=== PATIENT | male | born 1940 | race Caucasian/White ===

== ENCOUNTER 2020-01-18 13:58 | Outpatient (CLI) | payer MEDICARE, OTHER, SELFPAY ==
--- NOTE | 2020-01-22 15:10 | ONC FU_ITS ---
Dr. Walton Patient Follow-Up Note Patient: Brian Noel Unit #: [id number]: 1940 Dicatated By: Miki Walton M.D.Date of Visit:January 18, 2020 Onc Med Follow-up/Prog Note Chief Complaint: Squamous cell carcinoma of the nasopharynx. 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 He had presented with a palpable mass on the right side of the neck. FNA biopsy of the mass on 05/19/2018 showed metastatic squamous cell carcinoma, p16 positive. CT of the neck on 05/19/2018 showed rounded soft tissue density mass within the right neck, reportedly measuring 2.[address] of the chest and abdomen showed stable appearing mediastinal and right hilar lymphadenopathy. The right adrenal gland was not definitely visualized. PET/CT on 06/02/2018 showed an intense focus of increased metabolic activity in the right posterior nasal pharynx soft tissue, maximum SUV 7.56. The area of involvement appeared to roughly measure 2.8 x 1.8 cm. The right cervical mass measured 2.8 x 2.8 cm with SUV 12.31. There was increased metabolic activity present in mediastinal lymph nodes, felt to be nonspecific. He underwent bronchoscopy/EBUS with FNA biopsy of station 4L and station 7 lymph nodes. Pathology was benign. On 06/26/2018 he underwent direct microlaryngoscopy with biopsy of nasopharynx and bilateral tonsillectomy. Pathology on the tonsillectomy specimens was benign. Nasopharynx biopsy at the right torus tubarius showed p16 positive squamous cell carcinoma. Overall, the findings were consistent with T1, N1 primary squamous cell carcinoma of the nasopharynx, and he was recommended undergo treatment with chemoradiation. His medical history is otherwise significant for deep vein thrombosis of the left leg in January 2017. CT pulmonary angiogram at that time showed no evidence of pulmonary embolism. However, he was noted to have a 5.2 x 3.9 x 4.7 cm right adrenal mass. 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 He then underwent right adrenalectomy in [facility] in May 2017. The lesion apparently was malignant, but completely resected. I had seen him initially on 08/20/2018. He was recommended to proceed with chemoradiation utilizing the standard high-dose cisplatin regimen. However, he was very reluctant to undergo treatment due to concerns about the associated side effects, as he had not been eating well and was already losing weight. He was also very reluctant to have his teeth removed for the radiation. As such, I had initially just focused on his symptomatic management, and he did show significant improvement. However, during subsequent follow-up he continued to decline treatment with either chemotherapy or radiation. His other medical illnesses include hyperlipidemia, coronary artery disease, COPD, and degenerative arthritis. He underwent coronary angioplasty/stent placement in association with a myocardial infarction in 2001. He also has a prior history of pulmonary embolism. He has a history of smoking for 50 years, previously up to 1 1/2 pack of cigarettes daily. He currently smokes 1 pack per day or less. He is seen for a followup visit. He complains that he is weak all the time that he cannot do anything. Activity is limited. His ECOG score is 2. Appetite is poor. His weight is down 10 pounds. He has not had fever or night sweats. He says he is cold natured. He sometimes has sinus drainage. He has quite a bit of cough. It is productive of white phlegm. He has shortness of breath. His breathing is about the same. He does not complain of chest pain. He has no GI/ complaints other than his urination is slow. He has back pain, which is chronic. He does not complain of headache. He does have dizziness and orthostatic lightheadedness. He has no focal neurologic symptoms. Medications: Eliquis 1 Tablet (of 5 mg) Oral daily, Nitrofurantoin Monohyd Macro 1 (100 mg) Capsule Oral b.i.d. for 7 days Allergies: Aloe Vera Review of Systems: Constitutional - He complains that he is weak all the time. He has limited activity. His appetite is poor. His weight is down 10 lbs. No fever or night sweats. ECOG score is 2, ENMT - He has sinus congestion/drainage. No mouth sores. No sore throat or difficulty swallowing, Hematologic/Lymphatic - He bruises easily, Respiratory - He has shortness of breath with activity. He has cough productive of white phlegm. No pleuritic pain or hemoptysis, Cardiovascular - No angina pain. No palpitations, Gastrointestinal - No nausea or vomiting. No heartburn or acid reflux. No diarrhea or constipation. No blood in the stool or black stools, Genitourinary (M) - His urination is slow. No dysuria or hematuria. No urgency or incontinence, Musculoskeletal - He has back pain, Integumentary - No skin complications, Neurologic - No headache. He has dizziness and he has orthostatic light-headness. No numbness/paresthesias or other focal neurologic symptoms, Psychiatric - He has depression because he is not able to do anything. He has difficulty sleeping. Vital Signs: Height 70 inches and weight 168 pounds. Blood pressure 92/58, pulse 81, respirations 18, temp 98.9 degrees, and oxygen saturation 94%. Physical Examination: Constitutional - He appears somewhat weak generally, Eyes - Sclerae nonicteric. Conjunctivae clear, ENMT - There are no lesions noted in the oral cavity, Neck - He has developed a confluent mass on the right side of the neck, now measuring in the range of 8 cm in maximum diameter, Hematologic/Lymphatic - There is no adenopathy on the left side of the neck and there is no axillary adenopathy noted, Respiratory - Lungs are clear with diminished air movement bilaterally, Cardiovascular - Heart rhythm is regular. There is no murmur, gallop, or rub noted, Abdomen - Soft. Liver and spleen are not enlarged. There is no abdominal mass or ascites noted and there is no inguinal adenopathy, Extremities - No edema, Neurologic - No focal neurologic deficits noted. Impression: 1. 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 2. He had associated anorexia with weight loss of 50 pounds. 3. 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 4. He has a history of left lower extremity deep vein thromboses in January 2017 and a prior history of pulmonary embolism. His other medical illnesses include: 5. Hyperlipidemia. 6. Coronary artery disease with previous myocardial infarction and angioplasty/stent placement. 7. COPD. 8. Degenerative arthritis. He was recommended to undergo chemoradiation utilizing a standard high-dose cisplatin chemotherapy regimen. He initially declined treatment due to concerns about toxicity and the need for dental extractions. His tumor was found to be negative for PD-L1 expression. He initially was feeling better with symptomatic measures. During subsequent follow-up there has been progression of the local disease in the right side of his neck, but it has been very gradual. His blood pressure has been low, and he has continued to complain of weakness and orthostatic lightheadedness. Plan: He is going to continue symptomatic/supportive care measures for the head/neck cancer. Due to his weakness and lightheadedness in association with persistent hypotension, I will schedule him for a cosyntropin stimulation test. He will have further evaluation as indicated. Signed By: Miki Walton M.D. <<Signature on File>>
== END 2020-01-18 13:59 | disposition home or self-care (01) ==
LOC: ONCMED 13:58
PROVIDERS: PCP Nurse Practitioner Family; Visit Provider Internal Medicine Medical Oncology
DX: C11.2 Malignant neoplasm of lateral wall of nasopharynx (principal); Z85.89 Personal history of malignant neoplasm of other organs and systems; I95.9 Hypotension, unspecified; E89.6 Postprocedural adrenocortical (-medullary) hypofunction; E78.5 Hyperlipidemia, unspecified; I25.10 Atherosclerotic heart disease of native coronary artery without angina pectoris; I25.2 Old myocardial infarction; J44.9 Chronic obstructive pulmonary disease, unspecified; M19.90 Unspecified osteoarthritis, unspecified site; Z95.1 Presence of aortocoronary bypass graft; Z95.5 Presence of coronary angioplasty implant and graft
CPT/HCPCS: 99214

== ENCOUNTER 2020-01-28 09:39 | Outpatient (CLI) | payer MEDICARE, OTHER, SELFPAY ==
[2020-01-28 10:13] VITALS: BP 116/7; PULSE 62; RESP 18; TEMP 36.7; O2SAT 98; BMI 24.0
[2020-01-28] MEDS: cosyntropin 0.25 mg SDV IVP (10:40)
[2020-01-28 10:59] LABS: Basophils % 0.4 %; Eosinophils # 0.2 10^3/uL (0.0-0.8); Eosinophils % 3.2 %; Hematocrit 45.8 % (42.0-52.0); Hemoglobin 15.1 g/dL (11.7-16.6); Lymphocytes # 1.5 10^3/uL (0.8-4.8); Lymphocytes % 27.4 %; Mean Corpuscular Hemoglobin 31.7 pg (28.0-34.0); Mean Corpuscular Volume 96.2 fL (80-94); Monocytes # 0.5 10^3/uL (0.2-0.9); Monocytes % 8.8 %; Neutrophils # 3.2 10^3/uL (1.8-7.7); Neutrophils % 59.8 %; Nucleated Red Blood Cells % 0 %; Platelet Count 213 10^3/cmm (130-400); Red Blood Count 4.76 10^6/uL (4.1-5.3); Red Cell Distribution Width 13.1 % (12.1-15.1); White Blood Count 5.4 10^3/uL (4.0-10.0)
[2020-01-28 11:33] LABS: Alanine Aminotransferase 13 U/L (0-41); Albumin Level 4.3 g/dL (3.5-5.2); Alkaline Phosphatase 67 IU/L (40-130); Anion Gap 16.6 (5-19); Aspartate Amino Transferase 23 U/L (0-40); Blood Urea Nitrogen 16 mg/dL (8-23); Calcium 9.5 mg/dL (8.5-10.5); Carbon Dioxide 24 mmol/L (22-29); Chloride 102 mmol/L (98-107); Free T4 Free Thyroxine 1.37 ng/dL (0.82-1.77); Glucose 103 mg/dL (65-115); Osmolality Calculated 283 mOsm/kg (285-295); Potassium 4.6 mmol/L (3.5-5.1); Sodium 138 mmol/L (136-145); Thyroid Stimulating Hormone 3.69 uIU/mL (0.27-4.20); Total Bilirubin 0.4 mg/dL (0.15-1.2); Total Protein 7.3 g/dL (6.6-8.7)
[2020-01-28 11:59] LABS: Cosyntropin Baseline 13.34 mcg/dL
[2020-01-28 12:39] LABS: Cosyntropin 30 Minute 21.67 mcg/dL
[2020-01-28 13:45] LABS: Cosyntropin 1 Hour 26.65 mcg/dL
== END 2020-01-28 09:40 | disposition home or self-care (01) ==
LOC: GILAB 09:43
PROVIDERS: PCP Nurse Practitioner Family; Visit Provider Internal Medicine Medical Oncology
DX: C11.2 Malignant neoplasm of lateral wall of nasopharynx (principal)
CPT/HCPCS: 36415; 80053; 82533; 84439; 84443; 85025; 96375; J0834

== ENCOUNTER 2021-05-25 08:06 | Outpatient (CLI) | payer MEDICARE, OTHER, SELFPAY ==
--- NOTE | 2021-05-25 12:52 | ONC FU_ITS ---
Dr. Walton Patient Follow-Up Note Patient: Brian Noel Unit #: [id number]: 1940 Dicatated By: Miki Walton M.D.Date of Visit:May 25, 2021 Onc Med Follow-up/Prog Note Chief Complaint: Squamous cell carcinoma of the nasopharynx. 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 He had presented with a palpable mass on the right side of the neck. FNA biopsy of the mass on 05/19/2018 showed metastatic squamous cell carcinoma, p16 positive. CT of the neck on 05/19/2018 showed rounded soft tissue density mass within the right neck, reportedly measuring 2.[address] of the chest and abdomen showed stable appearing mediastinal and right hilar lymphadenopathy. The right adrenal gland was not definitely visualized. PET/CT on 06/02/2018 showed an intense focus of increased metabolic activity in the right posterior nasal pharynx soft tissue, maximum SUV 7.56. The area of involvement appeared to roughly measure 2.8 x 1.8 cm. The right cervical mass measured 2.8 x 2.8 cm with SUV 12.31. There was increased metabolic activity present in mediastinal lymph nodes, felt to be nonspecific. He underwent bronchoscopy/EBUS with FNA biopsy of station 4L and station 7 lymph nodes. Pathology was benign. On 06/26/2018 he underwent direct microlaryngoscopy with biopsy of nasopharynx and bilateral tonsillectomy. Pathology on the tonsillectomy specimens was benign. Nasopharynx biopsy at the right torus tubarius showed p16 positive squamous cell carcinoma. Overall, the findings were consistent with T1, N1 primary squamous cell carcinoma of the nasopharynx, and he was recommended undergo treatment with chemoradiation. I had seen him initially on 08/20/2018. He was recommended to proceed with chemoradiation utilizing the standard high-dose cisplatin regimen. However, he was very reluctant to undergo treatment due to concerns about the associated side effects, as he had not been eating well and was already losing weight. He was also very reluctant to have his teeth removed for the radiation. As such, I had initially just focused on his symptomatic management, and he did show significant improvement. However, during subsequent follow-up he continued to decline treatment with either chemotherapy or radiation. His medical history is otherwise significant for deep vein thrombosis of the left leg in January 2017. CT pulmonary angiogram at that time showed no evidence of pulmonary embolism. However, he was noted to have a 5.2 x 3.9 x 4.7 cm right adrenal mass. 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 He then underwent right adrenalectomy in [facility] in May 2017. The lesion apparently was malignant, but completely resected. His other medical illnesses include hyperlipidemia, coronary artery disease, COPD, and degenerative arthritis. He underwent coronary angioplasty/stent placement in association with a myocardial infarction in 2001. He also has a prior history of pulmonary embolism. He has a history of smoking for 50 years, previously up to 1 1/2 pack of cigarettes daily. He cut down to 1 pack per day or less. INTERIM HISTORY: As of his follow-up visit in December 2019 he continues to report episodes of weakness and lightheadedness. He otherwise appeared stable clinically. A subsequent cosyntropin stimulation test showed adequate adrenal response. He continued symptomatic/supportive care. He is seen today at his request because of a severe skin eruption. It had started 2 or 3 months ago. His treatment has included a course of ivermectin therapy and topical triamcinolone cream, but without benefit. He continues to have a terrible, itchy skin rash which is predominantly on his back and arms. During this time is also noted significant worsening of generalized joint pain. He complains that he has no energy, and he has very little activity. ECOG score is 3. His appetite is poor and his oral intake remains limited. His weight is down another 20 pounds since his last visit. He does not have fever or night sweats. He has had sore throat, but no difficulty swallowing. He has just occasional cough. He is sometimes short of breath. He has had occasional episodes of chest pain. He does not complain of nausea. His bowels do not move very well, but that he attributes to not eating very much. Bladder function is slow. He does not complain of headache. He still sometimes has dizziness/lightheadedness. He has no numbness/paresthesia or other focal neurologic symptoms. Medications: Eliquis 1 Tablet (of 5 mg) Oral daily, Ivermectin Tablet Oral, Tamsulosin HCl 1 Tablet (of 0.4 mg) Capsule Oral daily, Triamcinolone Acetonide 1 APL (of 0.1 %) Cream Topical b.i.d. Allergies: Aloe Vera Vital Signs: Performed on May 25, 2021 08:54 Height - 70.00 in Weight - 148.8 lbs (LOW) BSA - 1.84 sq.m BMI - 21.35 Temperature - 97.8 F (LOW) Pulse - 106 /min (HIGH) Respiration - 18 /min BP - 110/70 mm(hg) O2 Sat - 99 % Pain - 5 Fatigue - 8 Physical Examination: Constitutional - He appears somewhat weak generally, Eyes - Sclerae nonicteric. Conjunctivae clear, ENMT - There are no lesions noted in the oral cavity, Hematologic/Lymphatic - No adenopathy in the neck or axillae, Respiratory - Lungs are clear with diminished air movement bilaterally, Cardiovascular - Heart rhythm is regular. There is no murmur, gallop, or rub noted, Abdomen - Soft. Liver and spleen are not enlarged. There is no abdominal mass or ascites noted and there is no inguinal adenopathy, Extremities - No edema, Integumentary - There is diffuse erythematous skin eruption on the back and forearms. There it is more limited involvement in the abdomen and in the right knee area, Neurologic - No focal neurologic deficits noted. Problem List: 1. 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 2. 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 3. He has a history of left lower extremity deep vein thromboses in January 2017 and a prior history of pulmonary embolism. 4. Hyperlipidemia. 5. Coronary artery disease with previous myocardial infarction and angioplasty/stent placement. 6. COPD. 7. Degenerative arthritis. Problems Addressed with this Encounter and Plan: 1. Patient with known head/neck cancer presents with extensive erythematous skin eruption, predominantly on the back and forearms. He has had empiric treatment with ivermectin and with topical triamcinolone cream, but without apparent benefit. The appearance is most suggestive of a hypersensitivity reaction, and I did recommend that, at least temporarily, he stopped both the apixaban and the tamsulosin. He will now start prednisone 20 mg 3 times daily for 3 days, followed by 20 mg twice daily for 6 days, then continuing 10 mg twice daily. I will tentatively plan a follow-up visit for 1 month. If he is not having significant improvement by next week, I will arrange for him to see a brick layer. 2. 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 He was recommended to undergo chemoradiation utilizing a standard high-dose cisplatin chemotherapy regimen. He declined treatment due to concerns about toxicity and the need for dental extractions. His tumor was found to be negative for PD-L1 expression. As such, he has thus far just continued symptomatic/supportive care. He has continued to show gradual weight loss and gradual decline in performance status. Signed By: Miki Walton M.D. <<Signature on File>>
== END 2021-05-25 08:07 | disposition home or self-care (01) ==
LOC: ONCMED 08:13
PROVIDERS: PCP Nurse Practitioner Family; Visit Provider Internal Medicine Medical Oncology
DX: C11.2 Malignant neoplasm of lateral wall of nasopharynx (principal); E78.5 Hyperlipidemia, unspecified; I25.10 Atherosclerotic heart disease of native coronary artery without angina pectoris; Z79.52 Long term (current) use of systemic steroids; I25.2 Old myocardial infarction; M19.90 Unspecified osteoarthritis, unspecified site; Z79.01 Long term (current) use of anticoagulants; Z86.718 Personal history of other venous thrombosis and embolism; Z79.899 Other long term (current) drug therapy; Z95.5 Presence of coronary angioplasty implant and graft
CPT/HCPCS: 99214

== ENCOUNTER 2021-06-28 15:42 | Outpatient (CLI) | payer MEDICARE, OTHER, SELFPAY ==
--- NOTE | 2021-07-01 12:07 | ONC FU_ITS ---
Dr. Walton Patient Follow-Up Note Patient: Brian Noel Unit #: [id number]: 1940 Dicatated By: Miki Walton M.D.Date of Visit:Jun 28, 2021 Onc Med Follow-up/Prog Note Chief Complaint: Squamous cell carcinoma of the nasopharynx. 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 He had presented with a palpable mass on the right side of the neck. FNA biopsy of the mass on 05/19/2018 showed metastatic squamous cell carcinoma, p16 positive. CT of the neck on 05/19/2018 showed rounded soft tissue density mass within the right neck, reportedly measuring 2.[address] of the chest and abdomen showed stable appearing mediastinal and right hilar lymphadenopathy. The right adrenal gland was not definitely visualized. PET/CT on 06/02/2018 showed an intense focus of increased metabolic activity in the right posterior nasal pharynx soft tissue, maximum SUV 7.56. The area of involvement appeared to roughly measure 2.8 x 1.8 cm. The right cervical mass measured 2.8 x 2.8 cm with SUV 12.31. There was increased metabolic activity present in mediastinal lymph nodes, felt to be nonspecific. He underwent bronchoscopy/EBUS with FNA biopsy of station 4L and station 7 lymph nodes. Pathology was benign. On 06/26/2018 he underwent direct microlaryngoscopy with biopsy of nasopharynx and bilateral tonsillectomy. Pathology on the tonsillectomy specimens was benign. Nasopharynx biopsy at the right torus tubarius showed p16 positive squamous cell carcinoma. Overall, the findings were consistent with T1, N1 primary squamous cell carcinoma of the nasopharynx, and he was recommended undergo treatment with chemoradiation. I had seen him initially on 08/20/2018. He was recommended to proceed with chemoradiation utilizing the standard high-dose cisplatin regimen. However, he was very reluctant to undergo treatment due to concerns about the associated side effects, as he had not been eating well and was already losing weight. He was also very reluctant to have his teeth removed for the radiation. As such, I had initially just focused on his symptomatic management, and he did show significant improvement. However, during subsequent follow-up he continued to decline treatment with either chemotherapy or radiation. As of his follow-up visit in December 2019 he continues to report episodes of weakness and lightheadedness. He otherwise appeared stable clinically. A subsequent cosyntropin stimulation test showed adequate adrenal response. He continued symptomatic/supportive care. His medical history is otherwise significant for deep vein thrombosis of the left leg in January 2017. CT pulmonary angiogram at that time showed no evidence of pulmonary embolism. However, he was noted to have a 5.2 x 3.9 x 4.7 cm right adrenal mass. 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 He then underwent right adrenalectomy in [facility] in May 2017. The lesion apparently was malignant, but completely resected. His other medical illnesses include hyperlipidemia, coronary artery disease, COPD, and degenerative arthritis. He underwent coronary angioplasty/stent placement in association with a myocardial infarction in 2001. He also has a prior history of pulmonary embolism. He has a history of smoking for 50 years, previously up to 1 1/2 pack of cigarettes daily. He cut down to 1 pack per day or less. I had seen him for a followup visit on 05/25/2021. He had developed a severe skin eruption 2 or 3 months earlier. His treatment has included a course of ivermectin therapy and topical triamcinolone cream, but without benefit. The appearance was consistent with a hypersensitivity reaction. He was treated with prednisone, initially at 20 mg tid. He was advised to stop apixiban and tamsulosin. He is seen for a followup visit. He is feeling much better, currently taking 20 mg of prednisone twice daily. His skin eruption has almost completely resolved. He also is feeling much better generally with improved energy and mobility. He has some difficulty swallowing. He tends to choke up at night. He has shortness of breath with activity. He was having constipation, but that has improved now. He has had difficulty voiding after stopping Flomax. Medications: Eliquis 1 Tablet (of 5 mg) Oral daily, predniSONE 2 Tablet (of 10 mg) Oral daily for 2 weeks, Tamsulosin HCl 1 Tablet (of 0.4 mg) Capsule Oral daily, Triamcinolone Acetonide 1 APL (of 0.1 %) Cream Topical b.i.d., Umeclidinium-Vilanterol 1 Puff(s) (of 62.5-25 mcg/inh) Aerosol Powder, Breath Activated Inhalation daily Allergies: Aloe Vera Vital Signs: Performed on Jun 28, 2021 16:00 Height - 70.00 in Weight - 159.8 lbs (HIGH) BSA - 1.90 sq.m BMI - 22.93 Temperature - 98.4 F Pulse - 100 /min Respiration - 18 /min BP - 112/77 mm(hg) O2 Sat - 99 % Pain - 0 Fatigue - 7 Physical Examination: Constitutional - He looks better generally, Eyes - Sclerae nonicteric. Conjunctivae clear, ENMT - There are no lesions noted in the oral cavity, Neck - There are perstent masses on the right side of the neck measuring 3cm and 1 cm, Hematologic/Lymphatic - There is no other adenopathy in the neck or axillae, Respiratory - Lungs are clear with diminished air movement bilaterally, Cardiovascular - Heart rhythm is regular. There is no murmur, gallop, or rub noted, Abdomen - Soft. Liver and spleen are not enlarged. There is no abdominal mass or ascites noted and there is no inguinal adenopathy, Extremities - Mild edema, Integumentary - The skin eruption is almost completely resolved, Neurologic - No focal neurologic deficits noted. Problem List: 1. 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 2. 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 3. He has a history of left lower extremity deep vein thromboses in January 2017 and a prior history of pulmonary embolism. 4. Hyperlipidemia. 5. Coronary artery disease with previous myocardial infarction and angioplasty/stent placement. 6. COPD. 7. Degenerative arthritis. Problems Addressed with this Encounter and Plan: 1. Patient with known head/neck cancer presents with extensive erythematous skin eruption, predominantly on the back and forearms. He had empiric treatment with ivermectin and with topical triamcinolone cream, but without apparent benefit. The appearance was most suggestive of a hypersensitivity reaction. He was recommended to stop apixaban and tamsulosin and he began prednisone at 20 mg tid, subsequently reduced to 20 mg bid. He has had a very good response with almost complete resolution of the skin eruption. He also has been feeling much better generally. He will continue prednisone at 10 mg bid for 2 weeks, then decrease to 10 mg daily. He will try restarting the tamsulosin and the apixaban. I will see him again in one month. 2. 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 He was recommended to undergo chemoradiation utilizing a standard high-dose cisplatin chemotherapy regimen. He declined treatment due to concerns about toxicity and the need for dental extractions. His tumor was found to be negative for PD-L1 expression. As such, he has thus far just continued symptomatic/supportive care. Signed By: Miki Walton M.D. <<Signature on File>>
== END 2021-06-28 15:43 | disposition home or self-care (01) ==
LOC: ONCMED 15:44
PROVIDERS: PCP Nurse Practitioner Family; Visit Provider Internal Medicine Medical Oncology
DX: C11.9 Malignant neoplasm of nasopharynx, unspecified (principal); E78.2 Mixed hyperlipidemia; I25.10 Atherosclerotic heart disease of native coronary artery without angina pectoris; I25.2 Old myocardial infarction; J44.9 Chronic obstructive pulmonary disease, unspecified; F17.210 Nicotine dependence, cigarettes, uncomplicated; Z86.711 Personal history of pulmonary embolism; Z86.718 Personal history of other venous thrombosis and embolism; Z79.01 Long term (current) use of anticoagulants
CPT/HCPCS: G0463

== ENCOUNTER 2021-07-31 07:39 | Outpatient (CLI) | payer MEDICARE, OTHER, SELFPAY ==
[2021-07-31 08:38] LABS: Basophils % 0.3 %; Eosinophils # 0.1 10^3/uL (0.0-0.8); Eosinophils % 1.6 %; Hematocrit 43.1 % (42.0-52.0); Hemoglobin 13.6 g/dL (11.7-16.6); Lymphocytes # 3.1 10^3/uL (0.8-4.8); Lymphocytes % 35.3 %; Mean Corpuscular HGB Conc 31.6 g/dL (30.0-36.0); Mean Corpuscular Hemoglobin 29.8 pg (28.0-34.0); Mean Corpuscular Volume 94.5 fl (80-94); Mean Platelet Volume 9.7 fL (7.4-10.4); Monocytes # 1.2 10^3/uL (0.2-0.9); Monocytes % 13.5 %; Neutrophils # 4.21 10^3/uL (1.8-7.7); Neutrophils % 48.4 %; Nucleated Red Blood Cells % 0 %; Platelet Count 344 10^3/cmm (130-400); Red Blood Count 4.56 10^6/uL (4.1-5.3); Red Cell Distribution Width 18.4 % (12.1-15.1); White Blood Count 8.7 10^3/uL (4.0-10.0)
[2021-07-31 09:24] LABS: Alanine Aminotransferase 10 U/L (0-41); Albumin Level 3.7 g/dL (3.5-5.2); Alkaline Phosphatase 61 IU/L (40-130); Anion Gap 15.2 (5-19); Aspartate Amino Transferase 15 U/L (0-40); Blood Urea Nitrogen 20 mg/dL (8-23); Calcium 8.7 mg/dL (8.5-10.5); Carbon Dioxide 23 mmol/L (22-29); Chloride 106 mmol/L (98-107); Globulin 2.6 g/dL (1.3-4.6); Glucose 92 mg/dL (65-115); Osmolality Calculated 292 mOsm/kg (285-295); Potassium 4.2 mmol/L (3.5-5.1); Sodium 140 mmol/L (136-145); Thyroid Stimulating Hormone 5.76 uIU/mL (0.27-4.20); Total Bilirubin 0.2 mg/dL (0.15-1.2); Total Protein 6.3 g/dL (6.6-8.7)
--- NOTE | 2021-08-04 09:35 | ONC FU_ITS ---
Dr. Walton Patient Follow-Up Note Patient: Brian Noel Unit #: [id number]: [id number] Dicatated By: Miki Walton M.D.Date of Visit:Jul 31, 2021 Onc Med Follow-up/Prog Note Chief Complaint: Squamous cell carcinoma of the nasopharynx. 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 He had presented with a palpable mass on the right side of the neck. FNA biopsy of the mass on 05/19/2018 showed metastatic squamous cell carcinoma, p16 positive. CT of the neck on 05/19/2018 showed rounded soft tissue density mass within the right neck, reportedly measuring 2.[address] of the chest and abdomen showed stable appearing mediastinal and right hilar lymphadenopathy. The right adrenal gland was not definitely visualized. PET/CT on 06/02/2018 showed an intense focus of increased metabolic activity in the right posterior nasal pharynx soft tissue, maximum SUV 7.56. The area of involvement appeared to roughly measure 2.8 x 1.8 cm. The right cervical mass measured 2.8 x 2.8 cm with SUV 12.31. There was increased metabolic activity present in mediastinal lymph nodes, felt to be nonspecific. He underwent bronchoscopy/EBUS with FNA biopsy of station 4L and station 7 lymph nodes. Pathology was benign. On 06/26/2018 he underwent direct microlaryngoscopy with biopsy of nasopharynx and bilateral tonsillectomy. Pathology on the tonsillectomy specimens was benign. Nasopharynx biopsy at the right torus tubarius showed p16 positive squamous cell carcinoma. Overall, the findings were consistent with T1, N1 primary squamous cell carcinoma of the nasopharynx, and he was recommended undergo treatment with chemoradiation. I had seen him initially on 08/20/2018. He was recommended to proceed with chemoradiation utilizing the standard high-dose cisplatin regimen. However, he was very reluctant to undergo treatment due to concerns about the associated side effects, as he had not been eating well and was already losing weight. He was also very reluctant to have his teeth removed for the radiation. As such, I had initially just focused on his symptomatic management, and he did show significant improvement. However, during subsequent follow-up he continued to decline treatment with either chemotherapy or radiation. As of his follow-up visit in December 2019 he continues to report episodes of weakness and lightheadedness. He otherwise appeared stable clinically. A subsequent cosyntropin stimulation test showed adequate adrenal response. He continued symptomatic/supportive care. His medical history is otherwise significant for deep vein thrombosis of the left leg in January 2017. CT pulmonary angiogram at that time showed no evidence of pulmonary embolism. However, he was noted to have a 5.2 x 3.9 x 4.7 cm right adrenal mass. 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 He then underwent right adrenalectomy in [facility] in May 2017. The lesion apparently was malignant, but completely resected. His other medical illnesses include hyperlipidemia, coronary artery disease, COPD, and degenerative arthritis. He underwent coronary angioplasty/stent placement in association with a myocardial infarction in 2001. He also has a prior history of pulmonary embolism. He has a history of smoking for 50 years, previously up to 1 1/2 pack of cigarettes daily. He cut down to 1 pack per day or less. I had seen him for a followup visit on 05/25/2021. He had developed a severe skin eruption 2 or 3 months earlier. His treatment has included a course of ivermectin therapy and topical triamcinolone cream, but without benefit. The appearance was consistent with a hypersensitivity reaction. He was treated with prednisone, initially at 20 mg tid. He was advised to stop apixiban and tamsulosin. At his follow-up visit on 06/28/2021 he had improved significantly. He was then able to restart both the apixaban and the tamsulosin. He continued prednisone at 10 mg twice daily for an additional 2 weeks at which point it was further reduced to 10 mg daily. He is seen for a follow-up visit. He has been feeling pretty good generally since he has been on the steroid, as his joint pain and mobility have improved significantly. He says his energy is still not too good and he still has fairly limited activity. ECOG score is 2. Appetite has been much better on the steroid. He has not had fever or night sweats. He has having difficulty with vision due to cataracts and to macular degeneration. He has not had sore mouth or throat. He does have some shortness of breath with activity and he has cough productive of white sputum. He does not complain of chest pain. He was having diarrhea, but that seems to be resolving now. He has no other GI or complaints. He does not complain of headache. He sometimes has dizziness. He has no focal neurologic symptoms. He is still having some swelling in his legs. Medications: Eliquis 1 Tablet (of 5 mg) Oral daily, predniSONE 2 Tablet (of 10 mg) Oral daily for 2 weeks, Tamsulosin HCl 1 Tablet (of 0.4 mg) Capsule Oral daily, Triamcinolone Acetonide 1 APL (of 0.1 %) Cream Topical b.i.d., Umeclidinium-Vilanterol 1 Puff(s) (of 62.5-25 mcg/inh) Aerosol Powder, Breath Activated Inhalation daily Allergies: Aloe Vera Vital Signs: Performed on Jul 31, 2021 14:16 Height - 70.00 in Weight - 161.6 lbs (HIGH) BSA - 1.91 sq.m BMI - 23.19 Temperature - 98.7 F Pulse - 101 /min (HIGH) Respiration - 18 /min BP - 99/66 mm(hg) O2 Sat - 95 % (LOW) Pain - 0 Fatigue - 5 Physical Examination: Constitutional - He looks pretty good generally, Eyes - Sclerae nonicteric. Conjunctivae clear, ENMT - No lesions noted in the oral cavity, Neck - There is residual mass on the right side of the neck measuring the range of 5 cm, Hematologic/Lymphatic - There is no other adenopathy in the neck or axillae, Respiratory - Lungs are clear with diminished air movement bilaterally, Cardiovascular - Heart rhythm is regular. There is no murmur, gallop, or rub noted, Abdomen - Soft. Liver and spleen are not enlarged. There is no abdominal mass or ascites noted and there is no inguinal adenopathy, Extremities - Mild edema, Integumentary - No skin eruption, Neurologic - No focal neurologic deficits noted. Lab/Imaging: Test performed on Jul 31, 2021 08:25 Sodium 140 mmol/L TSH 5.76 uIU/mL Potassium 4.2 mmol/L Chloride 106 mmol/L CO2 23 mmol/L Anion Gap 15.2 BUN 20 mg/dL Creatinine 0.9 mg/dL Cr Clearance (Est) 65.61 mL/min Glucose 92 mg/dL Osmolality - Calculated 292 mOsm/kg Calcium 8.7 mg/dL Protein, Total 6.3 g/dL Albumin 3.7 g/dL Globulin 2.6 g/dL Bilirubin, Total 0.2 mg/dL ALT (SGPT) 10 U/L AST (SGOT) 15 U/L Alkaline Phosphatase 61 IU/L WBC 8.7 10 3/uL RBC 4.56 10 6/uL HGB 13.6 g/dL HCT 43.1 % MCV 94.5 fl MCH 29.8 pg MCHC 31.6 g/dL RDW 18.4 % Platelet Count 344 10 3/cmm MPV 9.7 fL Neutrophils 4.21 10 3/uL Lymphocytes 3.1 10 3/uL Monocytes 1.2 10 3/uL Eosinophils 0.1 10 3/uL Basophils 0.0 10 3/uL Neutrophil % 48.4 % Lymphocyte % 35.3 % Monocyte % 13.5 % Eosinophil % 1.6 % Basophils % 0.3 % NRBC % 0 % Problem List: 1. 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 2. 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 3. He has a history of left lower extremity deep vein thromboses in January 2017 and a prior history of pulmonary embolism. 4. Hyperlipidemia. 5. Coronary artery disease with previous myocardial infarction and angioplasty/stent placement. 6. COPD. 7. Degenerative arthritis. 8. Benign prostatic hypertrophy. Problems Addressed with this Encounter and Plan: 1. Patient with known head/neck cancer presents with extensive erythematous skin eruption, predominantly on the back and forearms. He had empiric treatment with ivermectin and with topical triamcinolone cream, but without apparent benefit. The appearance was most suggestive of a hypersensitivity reaction. He was recommended to stop apixaban and tamsulosin and he began prednisone at 20 mg tid, subsequently reduced to 20 mg bid. He had a very good response with almost complete resolution of the skin eruption. Thus far there has been no recurrence of the eruption with the prednisone reduced to 10 mg daily. He has been feeling much better generally since he started the steroid. As such, he will continue prednisone at 10 mg daily. He will be scheduled for a follow-up visit in 3 months. 2. 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 He was recommended to undergo chemoradiation utilizing a standard high-dose cisplatin chemotherapy regimen. He declined treatment due to concerns about toxicity and the need for dental extractions. His tumor was found to be negative for PD-L1 expression. He has been followed on observation/symptomatic management. Thus far there has been no obvious disease progression despite the fact that he has had no specific treatment. Signed By: Miki Walton M.D. <<Signature on File>>
== END 2021-07-31 07:40 | disposition home or self-care (01) ==
LOC: ONCMED 07:41
PROVIDERS: PCP Nurse Practitioner Family; Visit Provider Internal Medicine Medical Oncology
DX: Z08 Encounter for follow-up examination after completed treatment for malignant neoplasm (principal); Z85.89 Personal history of malignant neoplasm of other organs and systems; E78.5 Hyperlipidemia, unspecified; I25.10 Atherosclerotic heart disease of native coronary artery without angina pectoris; Z95.5 Presence of coronary angioplasty implant and graft; J44.9 Chronic obstructive pulmonary disease, unspecified; M19.90 Unspecified osteoarthritis, unspecified site; N40.0 Benign prostatic hyperplasia without lower urinary tract symptoms; Z86.718 Personal history of other venous thrombosis and embolism; Z86.711 Personal history of pulmonary embolism
CPT/HCPCS: 36415; 80053; 84443; 85025; 99214

== ENCOUNTER 2021-10-30 08:17 | Outpatient (CLI) | payer MEDICARE, OTHER, SELFPAY ==
[2021-10-30 08:46] LABS: Basophils % 0.4 %; Eosinophils # 0.1 10^3/uL (0.0-0.8); Eosinophils % 1.8 %; Hematocrit 47.1 % (42.0-52.0); Hemoglobin 15.1 g/dL (11.7-16.6); Lymphocytes # 2.1 10^3/uL (0.8-4.8); Mean Corpuscular HGB Conc 32.1 g/dL (30.0-36.0); Mean Corpuscular Hemoglobin 30.2 pg (28.0-34.0); Mean Corpuscular Volume 94.2 fl (80-94); Mean Platelet Volume 10.2 fL (7.4-10.4); Neutrophils # 4.55 10^3/uL (1.8-7.7); Neutrophils % 57.3 %; Nucleated Red Blood Cells % 0 %; Platelet Count 273 10^3/cmm (130-400); Red Cell Distribution Width 15.1 % (12.1-15.1); White Blood Count 7.9 10^3/uL (4.0-10.0)
[2021-10-30 09:16] LABS: Alanine Aminotransferase 14 U/L (0-41); Alkaline Phosphatase 67 IU/L (40-130); Anion Gap 13.8 (5-19); Aspartate Amino Transferase 25 U/L (0-40); Blood Urea Nitrogen 20 mg/dL (8-23); Calcium 9.1 mg/dL (8.5-10.5); Carbon Dioxide 26 mmol/L (22-29); Chloride 102 mmol/L (98-107); Globulin 3.3 g/dL (1.3-4.6); Glucose 102 mg/dL (65-115); Osmolality Calculated 287 mOsm/kg (285-295); Potassium 4.8 mmol/L (3.5-5.1); Sodium 137 mmol/L (136-145); Thyroid Stimulating Hormone 2.13 uIU/mL (0.27-4.20); Total Bilirubin 0.5 mg/dL (0.15-1.2); Total Protein 7.3 g/dL (6.6-8.7)
--- NOTE | 2021-10-30 09:45 | ONC FU_ITS ---
Pearl Lal Progress Note Patient: Brian Noel Unit #: [id number]: 1940 Dicatated By: Pearl Lal N.P.Date of Visit:Oct 30, 2021 Onc MED Follow-up/Prog Note Chief Complaint: Squamous cell carcinoma of the nasopharynx. 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 He had presented with a palpable mass on the right side of the neck. FNA biopsy of the mass on 05/19/2018 showed metastatic squamous cell carcinoma, p16 positive. CT of the neck on 05/19/2018 showed rounded soft tissue density mass within the right neck, reportedly measuring 2.[address] of the chest and abdomen showed stable appearing mediastinal and right hilar lymphadenopathy. The right adrenal gland was not definitely visualized. PET/CT on 06/02/2018 showed an intense focus of increased metabolic activity in the right posterior nasal pharynx soft tissue, maximum SUV 7.56. The area of involvement appeared to roughly measure 2.8 x 1.8 cm. The right cervical mass measured 2.8 x 2.8 cm with SUV 12.31. There was increased metabolic activity present in mediastinal lymph nodes, felt to be nonspecific. He underwent bronchoscopy/EBUS with FNA biopsy of station 4L and station 7 lymph nodes. Pathology was benign. On 06/26/2018 he underwent direct microlaryngoscopy with biopsy of nasopharynx and bilateral tonsillectomy. Pathology on the tonsillectomy specimens was benign. Nasopharynx biopsy at the right torus tubarius showed p16 positive squamous cell carcinoma. Overall, the findings were consistent with T1, N1 primary squamous cell carcinoma of the nasopharynx, and he was recommended undergo treatment with chemoradiation. I had seen him initially on 08/20/2018. He was recommended to proceed with chemoradiation utilizing the standard high-dose cisplatin regimen. However, he was very reluctant to undergo treatment due to concerns about the associated side effects, as he had not been eating well and was already losing weight. He was also very reluctant to have his teeth removed for the radiation. As such, I had initially just focused on his symptomatic management, and he did show significant improvement. However, during subsequent follow-up he continued to decline treatment with either chemotherapy or radiation. As of his follow-up visit in December 2019 he continues to report episodes of weakness and lightheadedness. He otherwise appeared stable clinically. A subsequent cosyntropin stimulation test showed adequate adrenal response. He continued symptomatic/supportive care. His medical history is otherwise significant for deep vein thrombosis of the left leg in January 2017. CT pulmonary angiogram at that time showed no evidence of pulmonary embolism. However, he was noted to have a 5.2 x 3.9 x 4.7 cm right adrenal mass. 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 He then underwent right adrenalectomy in [facility] in May 2017. The lesion apparently was malignant, but completely resected. His other medical illnesses include hyperlipidemia, coronary artery disease, COPD, and degenerative arthritis. He underwent coronary angioplasty/stent placement in association with a myocardial infarction in 2001. He also has a prior history of pulmonary embolism. He has a history of smoking for 50 years, previously up to 1 1/2 pack of cigarettes daily. He cut down to 1 pack per day or less. I had seen him for a followup visit on 05/25/2021. He had developed a severe skin eruption 2 or 3 months earlier. His treatment has included a course of ivermectin therapy and topical triamcinolone cream, but without benefit. The appearance was consistent with a hypersensitivity reaction. He was treated with prednisone, initially at 20 mg tid. He was advised to stop apixiban and tamsulosin. At his follow-up visit on 06/28/2021 he had improved significantly. He was then able to restart both the apixaban and the tamsulosin. He continued prednisone at 10 mg twice daily for an additional 2 weeks at which point it was further reduced to 10 mg daily. Patient presents today for follow-up accompanied by his . He states he has been feeling pretty well. He continues to take prednisone 10 mg. He states it makes him feel much better and helps with his joint pain. His appetite has been fair but it has improved while being on prednisone. He denies fever, chills, night sweats. He states he has been diagnosed with macular degeneration in the right eye and is being evaluated in [place] for that. He has a history of COPD so he does have a chronic cough and some shortness of breath with activity. He denies chest pain. No nausea or vomiting. No diarrhea or constipation. He states his urinary flow is that has been going on for some time. He takes Flomax for that which helps. He denies headache, dizziness, numbness. Review Of Symptoms:See above. Past Medical History: Chronic obstructive pulmonary disease Coronary artery disease History of left lower extremity deep vein thrombosis History of pulmonary embolism Hyperlipidemia Osteoarthritis Past Surgical History: He had a previous tonsillectomy in childhood Covid vaccine #3 Moderna in 2020 Direct microlaryngoscopy with nasopharyngeal biopsy and bilateral tonsillectomy in 2018 Bronchoscopy with EBUS and FNA biopsy of mediastinal lymph nodes in 2018 FNA biopsy of right neck mass in 2018 Right adrenalectomy in 2016 Cholecystectomy in 2009 Lumbar laminectomy in 2004 Coronary angioplasty/stent placement in 2001 Allergies: Aloe Vera Medications: Eliquis 1 Tablet (of 5 mg) Oral daily predniSONE 2 Tablet (of 10 mg) Oral daily for 2 weeks Tamsulosin HCl 1 Tablet (of 0.4 mg) Capsule Oral daily Triamcinolone Acetonide 1 APL (of 0.1 %) Cream Topical b.i.d. Umeclidinium-Vilanterol 1 Puff(s) (of 62.5-25 mcg/inh) Aerosol Powder, Breath Activated Inhalation daily Family History: Father of heart attack at age 73. His mother during childbirth at age 28. He has 3 brothers and 3 sisters, mostly in good health. One son has diabetes. Social History: Mr. Noel is and he is retired. He is a daily smoker who has smoked 1.0 pack/day for 53 years. He has a history of smoking for 50 years, previously up to 1 1/2 pack of cigarettes daily. He is now down to a pack or less per day. He had some alcohol use back in the 1980s, but never heavy. Physical Examination: Vitals are not available for this patient. Performance Status: 2 - Ambulatory/capable of all self-care, unable to perform any work activities. Up and about more than 50% of waking hours. (ECOG) Constitutional Alert, cooperative, oriented. Mood and affect appropriate. Appears close to chronological age. Well nourished. Well developed. Head Normocephalic; no scars. Neck nodules to right posterior cervical chain Respiratory Clear but diminished breath sounds bilaterally Cardiovascular Regular rate and rhythm of heart without murmurs, gallops or rubs. Abdomen Non-tender, non-distended, no masses, ascites or hepatosplenomegaly. Good bowel sounds. No guarding or rebound tenderness. Extremities No visible deformities, no cyanosis, clubbing or edema. Pulses 3+ and equal bilaterally. Psychiatric Alert and oriented times three. Coherent speech. Verbalizes understanding of our discussions today. Laboratory: Test performed on Oct 30, 2021 08:37 Sodium 137 mmol/L TSH 2.13 uIU/mL Potassium 4.8 mmol/L Chloride 102 mmol/L CO2 26 mmol/L Anion Gap 13.8 BUN 20 mg/dL Creatinine 0.9 mg/dL Cr Clearance (Est) 65.6100 mL/min Glucose 102 mg/dL Osmolality - Calculated 287 mOsm/kg Calcium 9.1 mg/dL Protein, Total 7.3 g/dL Albumin 4.0 g/dL Globulin 3.3 g/dL Bilirubin, Total 0.5 mg/dL ALT (SGPT) 14 U/L AST (SGOT) 25 U/L Alkaline Phosphatase 67 IU/L WBC 7.9 10 3/uL RBC 5.00 10 6/uL HGB 15.1 g/dL HCT 47.1 % MCV 94.2 fl MCH 30.2 pg MCHC 32.1 g/dL RDW 15.1 % Platelet Count 273 10 3/cmm MPV 10.2 fL Neutrophils 4.55 10 3/uL Lymphocytes 2.1 10 3/uL Monocytes 1.0 10 3/uL Eosinophils 0.1 10 3/uL Basophils 0.0 10 3/uL Neutrophil % 57.3 % Lymphocyte % 27.0 % Monocyte % 13.0 % Eosinophil % 1.8 % Basophils % 0.4 % NRBC % 0 % Impression: 1. 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 2. 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 3. He has a history of left lower extremity deep vein thromboses in January 2017 and a prior history of pulmonary embolism. 4. Hyperlipidemia. 5. Coronary artery disease with previous myocardial infarction and angioplasty/stent placement. 6. COPD. 7. Degenerative arthritis. 8. Benign prostatic hypertrophy. Plan: 1. Patient with known head/neck cancer presents today for follow-up. He was started on prednisone due to a skin eruption which is now resolved. He continues taking prednisone 10 mg p.o. daily for pain. The prednisone has increased his ability to perform some activities and has also helped him increase his appetite. For those reasons we will continue the prednisone at 10 mg p.o. daily. We will have him follow-up in 3 months with CBC, CMP, TSH. 2. 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 He was recommended to undergo chemoradiation utilizing a standard high-dose cisplatin chemotherapy regimen. He declined treatment due to concerns about toxicity and the need for dental extractions. His tumor was found to be negative for PD-L1 expression. He has been followed on observation/symptomatic management. He continues to decline the option of treatment. We will continue to monitor. He will return to clinic in 3 months with CBC, CMP, TSH. Signed By: Pearl Lal N.P. <<Signature on File>>
== END 2021-10-30 08:18 | disposition home or self-care (01) ==
LOC: ONCMED 08:19
PROVIDERS: PCP Nurse Practitioner Family; Visit Provider Nurse Practitioner Family
DX: C11.3 Malignant neoplasm of anterior wall of nasopharynx (principal); E78.5 Hyperlipidemia, unspecified; I25.10 Atherosclerotic heart disease of native coronary artery without angina pectoris; J44.9 Chronic obstructive pulmonary disease, unspecified; I25.2 Old myocardial infarction; F17.210 Nicotine dependence, cigarettes, uncomplicated; M19.90 Unspecified osteoarthritis, unspecified site; Z86.711 Personal history of pulmonary embolism; Z86.718 Personal history of other venous thrombosis and embolism; Z79.899 Other long term (current) drug therapy
CPT/HCPCS: 36415; 80053; 84443; 85025; 99214

== ENCOUNTER 2022-03-05 09:40 | Oncology outpatient (recurring) (ONCR) | payer MEDICARE, OTHER, SELFPAY ==
[2022-03-05 10:30] LABS: Basophils % 0.4 %; Eosinophils # 0.1 10^3/uL (0.0-0.8); Eosinophils % 1.6 %; Hematocrit 47.8 % (42.0-52.0); Hemoglobin 15.8 g/dL (11.7-16.6); Lymphocytes # 1.8 10^3/uL (0.8-4.8); Lymphocytes % 26.4 %; Mean Corpuscular HGB Conc 33.1 g/dL (30.0-36.0); Mean Corpuscular Hemoglobin 30.6 pg (28.0-34.0); Mean Corpuscular Volume 92.6 fl (80-94); Monocytes # 0.7 10^3/uL (0.2-0.9); Monocytes % 10.2 %; Neutrophils # 4.15 10^3/uL (1.8-7.7); Neutrophils % 60.8 %; Nucleated Red Blood Cells % 0 %; Platelet Count 216 10^3/cmm (130-400); Red Blood Count 5.16 10^6/uL (4.1-5.3); Red Cell Distribution Width 15.1 % (12.1-15.1); White Blood Count 6.8 10^3/uL (4.0-10.0)
[2022-03-05 11:34] LABS: Alanine Aminotransferase 17 U/L (0-41); Alkaline Phosphatase 71 IU/L (40-130); Anion Gap 15.8 (5-19); Aspartate Amino Transferase 24 U/L (0-40); Blood Urea Nitrogen 22 mg/dL (8-23); Calcium 9.8 mg/dL (8.5-10.5); Carbon Dioxide 24 mmol/L (22-29); Chloride 102 mmol/L (98-107); Globulin 3.9 g/dL (1.3-4.6); Glucose 98 mg/dL (65-115); Osmolality Calculated 289 mOsm/kg (285-295); Potassium 3.8 mmol/L (3.5-5.1); Sodium 138 mmol/L (136-145); Thyroid Stimulating Hormone 6.27 uIU/mL (0.27-4.20); Total Bilirubin 0.4 mg/dL (0.15-1.2); Total Protein 7.9 g/dL (6.6-8.7)
== END 2022-03-31 23:59 | disposition home or self-care (01) ==
PROVIDERS: Nurse Practitioner Family; PCP Nurse Practitioner Family; Visit Provider Internal Medicine Medical Oncology
DX: C11.2 Malignant neoplasm of lateral wall of nasopharynx (principal); L27.1 Localized skin eruption due to drugs and medicaments taken internally; T38.0X5A Adverse effect of glucocorticoids and synthetic analogues, initial encounter; R53.83 Other fatigue; R53.1 Weakness; R63.0 Anorexia; Z68.21 Body mass index [BMI] 21.0-21.9, adult; M25.59 Pain in other specified joint; F17.210 Nicotine dependence, cigarettes, uncomplicated; Z79.52 Long term (current) use of systemic steroids; Z79.899 Other long term (current) drug therapy
CPT/HCPCS: 36415; 80053; 84443; 85025; 99214; 99215

== ENCOUNTER 2022-04-19 18:16 | Emergency (ER) | payer MEDICARE, OTHER, SELFPAY ==
[2022-04-19 18:25] VITALS: BP 120/72; PULSE 82; RESP 17; O2SAT 95; BMI 20.7
--- NOTE | 2022-04-19 18:36 | XRR_ITS ---
PROCEDURE INFORMATION: Exam: XR Chest Exam date and time: 04/19/2022 6:43 PM Age: 81 years old Clinical indication: Other: Dizzy TECHNIQUE: Imaging protocol: Radiologic exam of the chest. Views: 1 view. COMPARISON: CR Chest 2 views* [id number] 06/10/2018 1:17 PM FINDINGS: Lungs: Hyperinflated lungs. Mild diffuse coarsening of the lung parenchyma. No consolidation. Pleural spaces: Unremarkable. No pleural effusion. No pneumothorax. Heart/Mediastinum: Unremarkable. No cardiomegaly. Bones/joints: Unremarkable. XR/XR chest 1V portable [id number] IMPRESSION: No acute findings.
--- NOTE | 2022-04-19 18:36 | CTR_ITS ---
PROCEDURE INFORMATION: Exam: CT Head Without Contrast Exam date and time: 04/19/2022 6:50 PM Age: 81 years old Clinical indication: Altered mental status/memory loss and dizziness; Additional info: Dizzy TECHNIQUE: Imaging protocol: Computed tomography of the head without contrast. Radiation optimization: All CT scans at this facility use at least one of these dose optimization techniques: automated exposure control; mA and/or kV adjustment per patient size (includes targeted exams where dose is matched to clinical indication); or iterative reconstruction. COMPARISON: No relevant prior studies available. RADIATION DOSE METRICS: Total DLP (mGy-cm): 1057.08 FINDINGS: Brain: No hemorrhage. No edema. Moderate diffuse cerebral atrophy and mild sequela of chronic small vessel ischemic disease. Old lacunar infarct noted in the subcortical white matter of the right frontal lobe. No mass effect. Cerebral ventricles: No ventriculomegaly. Paranasal sinuses: Visualized sinuses are unremarkable. No fluid levels. Mastoid air cells: Visualized mastoid air cells are well aerated. Bones/joints: Unremarkable. No acute fracture. Soft tissues: Unremarkable. CT/CT head wo con* [id number] IMPRESSION: 1. No acute intracranial abnormality. 2. Moderate diffuse cerebral atrophy and mild sequela of chronic small vessel ischemic disease. 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
--- NOTE | 2022-04-19 18:38 | ECG_ITS ---
[facility] Test Date: 2022-04-19 Pat Name: Brian Noel Department: Room: Gender: Male Bundle Collector: : 1940 Requested By: Jude Botello Order Number: [id number] Dian MD: Sukhdev Paulino M.D. Measurements Intervals [place] Rate: 71 P: 102 NM: 198 QRS: 63 QRSD: 106 T: 52 QT: 414 QTc: 451 Interpretive Statements SINUS RHYTHM Compared to ECG 02/10/2017 18:11:23 No significant changes Electronically Signed On 04-19-2022 23:43:15 CDT by Sukhdev Paulino M.D. [email or web address]
--- NOTE | 2022-04-19 18:55 | W.ED.NAVMDI ---
HPI - Nausea/Vomiting/Diarrhea General: Chief complaint: Nausea/Vomiting/Diarrhea Stated complaint: NAUSEA Time Seen by Provider: 04/19/22 18:19 Source: patient History of Present Illness: 81-year-old male with a history of throat cancer. He presents with an episode of nausea, several episodes of vomiting, and dizziness starting around noon today. Current symptoms are improved. No fever. No chest pain or belly pain. His dizziness is improved. His nausea is still present but much improved. He was given something [id number] by a family member that seem to help a bit. No other family members are sick. He notes a cough recently. No headache. No focal weakness or visual changes. 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 He also had a coronary stent placed years ago MD elicited complaint: nausea, vomiting and other Pertinent past history: other Onset (ago): hour(s) Associated nausea: Yes Associated abdominal pain: No Location of pain: None Quality: other Associated symtoms: Reports cough, dizziness, fatigue, nausea and weakness (General); Denies altered mental status, anxiety, change in vision, chest pain, diaphoresis, dysuria, fevers/chills, headache(s), short of breath or syncope Review of Systems Const: Reports: fatigue; Denies: diaphoresis Eyes: Denies: change in vision Card: Denies: chest pain or syncope Resp: Reports: non-productive cough; Denies: dyspnea or productive cough GI: Reports: nausea and vomiting; Denies: abdominal pain : Denies: dysuria Neuro: Reports: dizziness; Denies: headache(s) Psych: Denies: anxiety PFSH ED PFSH: Medical History BPH (benign prostatic hyperplasia) COPD (chronic obstructive pulmonary disease) Coronary artery disease DVT (deep venous thrombosis) Left lower extremity Hyperlipemia Hypothyroidism Osteoarthritis Pulmonary embolism Surgical History History of biopsy (06/26/18) Direct microlaryngoscopy with nasopharyngeal biopsy and bilateral tonsillectomy History of bronchoscopy (06/22/18) Bronchoscopy with EBUS and FNA biopsy of mediastinal lymph nodes History of cholecystectomy (2009) History of heart artery stent (2001) Coronary angioplasty/stent placement History of lumbar laminectomy (2005) History of tonsillectomy History of total adrenalectomy (2017) Right adrenalectomy Family History (Updated 03/05/22 @ 13:48 by Rosaura Cantu LPN) Father CAD (coronary artery disease) Other Hyperlipidemia Denies family history of Diabetes Clotting disorder Dementia Psychiatric illness Chronic kidney disease (CKD) Suicide Anesthesia complication Bleeding disorder Lung disease Cancer Hypertension Stroke Social History (Updated 03/05/22 @ 13:47 by Rosaura Cantu LPN) Smoking and tobacco status: current every day smoker (2 ppd) cigarettes Packs smoked per day: 2 Physical Exam Const: COMMON NORMALS: alert EXAM LIMITATIONS: no altered mental status HENMT: COMMON NORMALS: normocephalic, atraumatic and Normal external nose present HEAD & SCALP: normocephalic and atraumatic FACE & SINUS: normal facial exam and face symmetric NOSE: Normal external nose present and Normal nares present Eye: COMMON NORMALS: Equal, round and reactive pupils present and EOMs intact bilaterally PUPIL: Yes Equal, round and reactive pupils present Chest: COMMONS NORMALS: normal inspection of the chest Resp: COMMON NORMALS: normal respiratory effort, No use of accessory muscles and clear to auscultation bilaterally AUSCULTATION: clear to auscultation bilaterally Cardio: COMMON NORMALS: regular rate and regular rhythm RATE: regular rate RHYTHM: regular rhythm GI: COMMON NORMALS: Normal to inspection, nondistended, normoactive bowel sounds present, Soft to palpation, non-tender and no masses PALPATION: Yes Soft to palpation Extremity: COMMON NORMALS: no pedal edema Neuro: KRISTINE COMA SCALE: document GCS findings Kristine coma scale eye opening: Spontaneous [place] coma scale verbal response: Orientated [place] coma scale motor response: Obey commands [place] coma scale total score: 15 SENSORIUM/ORIENTATION: Yes alert SENSORY EXAM: Yes extremities (intact) MOTOR EXAM: Pronator motor function not present Psych: COMMON NORMALS: mental status grossly normal and cooperative Course Vital Signs: Vital signs: Vital Signs Pulse Rate 61 04/19/22 20:59 Respiratory Rate 16 04/19/22 20:59 Blood Pressure 121/83 04/19/22 20:59 Pulse Oximetry 94 04/19/22 20:59 Oxygen Delivery Me thod 04/19/22 18:25 MDM - Nausea/Vomiting/Diarrhea Medical Decision Making This patient's symptoms are improved. His head CT is negative for acute change or hemorrhage. 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 Chest x-ray is negative. CBC is normal. BMP is essentially normal. His troponin is 20 which would be consistent with a elaine with coronary disease. He did not have any chest pain at any point today. His episode of nausea was around noon, 8 hours ago. His EKG shows no acute ST changes. In fact, his rate is normal at 70. His axis is normal. There are no ST changes. His intervals are normal. He will be allowed discharge, after a liter of fluid and some medication, as he is feeling improved and has ambulated quite well here Lab Data : 04/19/22 19:15 04/19/22 19:15 Radiology Impressions Chest X-Ray 04/19/22 18:36 IMPRESSION: No acute findings. Head CT 04/19/22 18:36 IMPRESSION: 1. No acute intracranial abnormality. 2. Moderate diffuse cerebral atrophy and mild sequela of chronic small vessel ischemic disease. 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 Laboratory Results WBC 6.6 10^3/uL (4.0-10.0) 04/19/22 19:15 RBC 4.52 10^6/uL (4.1-5.3) 04/19/22 19:15 Hgb 13.7 g/dL (11.7-16.6) 04/19/22 19:15 Hct 43.3 % (42.0-52.0) 04/19/22 19:15 MCV 95.8 fl (80-94) H 04/19/22 19:15 MCH 30.3 pg (28.0-34.0) 04/19/22 19:15 MCHC 31.6 g/dL (30.0-36.0) 04/19/22 19:15 RDW 14.8 % (12.1-15.1) 04/19/22 19:15 Plt Count 293 10^3/cmm (130-400) 04/19/22 19:15 MPV 10.5 fL (7.4-10.4) H 04/19/22 19:15 Neut % (Auto) 79.8 % 04/19/22 19:15 Lymph % (Auto) 13.6 % 04/19/22 19:15 [place] % (Auto) 5.6 % 04/19/22 19:15 Eos % (Auto) 0.2 % 04/19/22 19:15 Baso % (Auto) 0.3 % 04/19/22 19:15 Neut # (Auto) 5.24 10^3/uL (1.8-7.7) 04/19/22 19:15 Lymph # (Auto) 0.9 10^3/uL (0.8-4.8) 04/19/22 19:15 [place] # (Auto) 0.4 10^3/uL (0.2-0.9) 04/19/22 19:15 Eos # (Auto) 0.0 10^3/uL (0.0-0.8) 04/19/22 19:15 Baso # (Auto) 0.0 10^3/uL (0.0-0.1) 04/19/22 19:15 Nucleated RBC % (auto) 0 % 04/19/22 19:15 Nucleated RBCs # 0.0 /100WBC 04/19/22 19:15 Sodium 139 mmol/L (136-145) 04/19/22 19:15 Potassium 4.5 mmol/L (3.5-5.1) 04/19/22 19:15 Chloride 102 mmol/L (98-107) 04/19/22 19:15 Carbon Dioxide 25 mmol/L (22-29) 04/19/22 19:15 Anion Gap 16.5 (5-19) 04/19/22 19:15 BUN 17 mg/dL (8-23) 04/19/22 19:15 Creatinine 0.9 mg/dL (0.7-1.2) 04/19/22 19:15 GFR Calculation Not Reportable 04/19/22 19:15 Glucose 145 mg/dL (65-115) H 04/19/22 19:15 Calculated Osmolality 292 mOsm/kg (285-295) 04/19/22 19:15 Calcium 9.6 mg/dL (8.5-10.5) 04/19/22 19:15 Magnesium 2.0 mg/dL (1.7-2.3) 04/19/22 19:15 Total Bilirubin 0.3 mg/dL (0.15-1.2) 04/19/22 19:15 AST 18 U/L (0-40) 04/19/22 19:15 ALT 11 U/L (0-41) 04/19/22 19:15 Alkaline Phosphatase 67 U/L (40-130) 04/19/22 19:15 Troponin T Baseline 20 ng/L (0-15) H 04/19/22 19:15 C-Reactive Protein 9.3 mg/L (0.0-4.9) H 04/19/22 19:15 Total Protein 7.1 g/dL (6.6-8.7) 04/19/22 19:15 Albumin 3.5 g/dL (3.5-5.2) 04/19/22 19:15 Globulin 3.6 g/dL (1.3-4.6) 04/19/22 19:15 Lipase 19 U/L (13-60) 04/19/22 19:15 Discharge Plan Discharge Patient Disposition: Home Clinical Impression: Near syncope Condition: Stable Prescriptions: New ondansetron 4 mg film 4 mg PO DAILY PRN (Reason: nausea and vomiting) Qty: 10 0RF No Action megestrol 400 mg/10 mL (10 mL) suspension 200 mg PO DAILY Qty: 200 2RF prednisone 10 mg tablet 10 mg PO DAILY Qty: 90 3RF tamsulosin 0.4 mg capsule 0.4 mg PO DAILY Qty: 90 3RF Eliquis 5 mg Tablet 5 mg PO DAILY Discharge Orders: Discharge ED (Routine); Ordered 04/19/22 Ordered By: Jude Martinez Referrals: Nida Durán FNP [Primary Care Provider] - Patient Instructions: Near Syncope (ED) Activity Restrictions/Additional Instructions: Take the medication you were prescribed every 6 hours while awake for the first 24 hours, then as needed. Return for worsening dizziness despite treatment, vomiting despite treatment, mental status changes, chest discomfort, shortness of breath, increasing cough, fever, or any other concerning symptoms Coding Level of Care Code ED Net Development Manager for Cynthia Jackson Exam Comprehensive
[2022-04-19] MEDS: sodium chloride 0.9% 1,000 ML 999 ML IV (19:21)
[2022-04-19] MEDS: ondansetron 2 mg/ML SDV 2 mL 4 MG IVP (19:21)
[2022-04-19 19:23] LABS: Basophils % 0.3 %; Eosinophils % 0.2 %; Hematocrit 43.3 % (42.0-52.0); Hemoglobin 13.7 g/dL (11.7-16.6); Lymphocytes # 0.9 10^3/uL (0.8-4.8); Lymphocytes % 13.6 %; Mean Corpuscular HGB Conc 31.6 g/dL (30.0-36.0); Mean Corpuscular Hemoglobin 30.3 pg (28.0-34.0); Mean Corpuscular Volume 95.8 fl (80-94); Mean Platelet Volume 10.5 fL (7.4-10.4); Monocytes # 0.4 10^3/uL (0.2-0.9); Monocytes % 5.6 %; Neutrophils # 5.24 10^3/uL (1.8-7.7); Neutrophils % 79.8 %; Nucleated Red Blood Cells % 0 %; Platelet Count 293 10^3/cmm (130-400); Red Blood Count 4.52 10^6/uL (4.1-5.3); Red Cell Distribution Width 14.8 % (12.1-15.1); White Blood Count 6.6 10^3/uL (4.0-10.0)
[2022-04-19 19:50] LABS: Alanine Aminotransferase 11 U/L (0-41); Albumin Level 3.5 g/dL (3.5-5.2); Alkaline Phosphatase 67 U/L (40-130); Anion Gap 16.5 (5-19); Aspartate Amino Transferase 18 U/L (0-40); Blood Urea Nitrogen 17 mg/dL (8-23); C Reactive Protein 9.3 mg/L (0.0-4.9); Calcium 9.6 mg/dL (8.5-10.5); Carbon Dioxide 25 mmol/L (22-29); Chloride 102 mmol/L (98-107); Globulin 3.6 g/dL (1.3-4.6); Glucose 145 mg/dL (65-115); Lipase 19 U/L (13-60); Osmolality Calculated 292 mOsm/kg (285-295); Potassium 4.5 mmol/L (3.5-5.1); Sodium 139 mmol/L (136-145); Total Bilirubin 0.3 mg/dL (0.15-1.2); Total Protein 7.1 g/dL (6.6-8.7)
[2022-04-19 19:51] LABS: Troponin(5th) Baseline 20 ng/L (0-15)
--- NOTE | 2022-04-19 20:30 | ECG_ITS ---
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 Measurements Intervals [place] Rate: 68 P: 99 DE: 215 QRS: 68 QRSD: 105 T: 57 QT: 404 QTc: 431 Interpretive Statements SINUS RHYTHM WITH FIRST DEGREE AV BLOCK Compared to ECG 04/19/2022 18:45:27 First degree AV block now present Electronically Signed On 04-19-2022 23:43:25 CDT by Sukhdev Paulino M.D. [id number]
[2022-04-19 20:59] VITALS: BP 121/83; PULSE 61; RESP 16; O2SAT 94
== END 2022-04-19 20:59 | disposition home or self-care (01) ==
PROVIDERS: Emergency Provider Emergency Medicine; PCP Nurse Practitioner Family
DX: R55 Syncope and collapse (principal); Z79.01 Long term (current) use of anticoagulants; J44.9 Chronic obstructive pulmonary disease, unspecified; I25.10 Atherosclerotic heart disease of native coronary artery without angina pectoris; E78.5 Hyperlipidemia, unspecified; F17.210 Nicotine dependence, cigarettes, uncomplicated; Z95.5 Presence of coronary angioplasty implant and graft
CPT/HCPCS: 70450; 71045; 80053; 83690; 83735; 84484; 85025; 86140; 93005; 96361; 96374; 99285; J2405; J7030

== ENCOUNTER 2022-06-21 10:57 | Oncology outpatient (recurring) (ONCR) | payer OTHER, SELFPAY ==
[2022-06-21 10:08] LABS: Basophils % 0.3 %; Eosinophils # 0.1 10^3/uL (0.0-0.8); Eosinophils % 1.8 %; Hematocrit 44.2 % (42.0-52.0); Lymphocytes # 1.8 10^3/uL (0.8-4.8); Lymphocytes % 27.8 %; Mean Corpuscular HGB Conc 31.7 g/dL (30.0-36.0); Mean Corpuscular Hemoglobin 30.2 pg (28.0-34.0); Mean Corpuscular Volume 95.5 fl (80-94); Mean Platelet Volume 10.2 fL (7.4-10.4); Monocytes # 0.8 10^3/uL (0.2-0.9); Monocytes % 12.5 %; Neutrophils # 3.72 10^3/uL (1.8-7.7); Neutrophils % 56.8 %; Nucleated Red Blood Cells % 0 %; Platelet Count 251 10^3/cmm (130-400); Red Blood Count 4.63 10^6/uL (4.1-5.3); Red Cell Distribution Width 15.5 % (12.1-15.1); White Blood Count 6.6 10^3/uL (4.0-10.0)
[2022-06-21 10:43] LABS: Alanine Aminotransferase 12 U/L (0-41); Albumin Level 3.5 g/dL (3.5-5.2); Alkaline Phosphatase 57 U/L (40-130); Anion Gap 13.2 (5-19); Aspartate Amino Transferase 22 U/L (0-40); Blood Urea Nitrogen 16 mg/dL (8-23); Calcium 9.7 mg/dL (8.5-10.5); Carbon Dioxide 24 mmol/L (22-29); Chloride 103 mmol/L (98-107); Globulin 3.5 g/dL (1.3-4.6); Glucose 91 mg/dL (65-115); Osmolality Calculated 283 mOsm/kg (285-295); Potassium 4.2 mmol/L (3.5-5.1); Sodium 136 mmol/L (136-145); Thyroid Stimulating Hormone 6.12 uIU/mL (0.27-4.20); Total Bilirubin 0.5 mg/dL (0.15-1.2)
== END 2022-07-01 23:59 | disposition home or self-care (01) ==
PROVIDERS: PCP Nurse Practitioner Family; Visit Provider Internal Medicine Medical Oncology
DX: C11.2 Malignant neoplasm of lateral wall of nasopharynx (principal); E03.9 Hypothyroidism, unspecified; F17.210 Nicotine dependence, cigarettes, uncomplicated; Z79.52 Long term (current) use of systemic steroids; Z79.01 Long term (current) use of anticoagulants
CPT/HCPCS: 80053; 84443; 85025; 99214